=== PATIENT | female | born 1945 | race Caucasian/White ===

== ENCOUNTER 2025-03-08 11:11 | Outpatient (CLI) | payer MEDICARE, SELFPAY ==
--- NOTE | ~2025-03-08 | DEXA_ITS ---
Bone Density Report Name: EM CERVANTES Age: 79 Sex: Female Ethnicity: White Date of : 1945 Indication: osteopenia; height loss; Referring Provider: PK SEALS Study: Bone densitometry was performed. Exam Date: March 08, 2025 Accession number: [id number] Bone Density: Region BMD T-score Z-score Classification AP Spine(L1-L4) 0.997 -0.5 2.2 Normal Femoral Neck (Left) 0.589 -2.3 -0.1 Osteopenia Total Hip (Left) 0.799 -1.2 0.9 Osteopenia Femoral Neck (Right) 0.571 -2.5 -0.2 Osteoporosis Total Hip (Right) 0.761 -1.5 0.5 Osteopenia Total Hip Mean 0.780 -1.4 0.7 Osteopenia World Health Organization criteria for BMD impression classify patients as: Normal (T-score at or above -1.0), Osteopenia (T-score between -1.0 and -2.5), or Osteoporosis (T-score at or below -2.5). 10-year Fracture Risk: FRAX not reported because: Some T-score for Spine Total or Hip Total or Femoral Neck at or below -2.5 Previous Exams: -- Region Exam Age BMD T-score BMD Change BMD Change Date g/cm2 vs Baseline vs Previous -- Total Hip(Left) 03/08/2025 79 0.799 -1.2 8.8%* 8.8%* 08/05/2019 73 0.735 -1.7 Total Hip(Right) 03/08/2025 79 0.761 -1.5 5.5%* 5.5%* 08/05/2019 73 0.722 -1.8 -- *Denotes significance at 95% confidence level, LSC for Total Hip = 0.027 g/cm2 Clinical Information Provided by Patient: Has used the following medications: Prolia (i.e. denosumab) Patient maximum height was 62.5 Menopause Age: 60 Drinks caffeinated beverages Onset of menses at age 12 Number of children 2 Impression: The patient has osteoporosis, based on the Right Femoral Neck T-score. No significant bone loss was observed. Discussion: INCREASED RISK OF FRACTURE. BONE DENSITY IS UNDESIRABLY LOW AT ONE OR MORE SKELETAL SITES, CONSISTENT WITH POSTMENOPAUSAL OSTEOPOROSIS. This patient's lowest T-score meets the World Health Organization's (WHO) criteria for osteoporosis at one or more sites (T-score -2.5 or below). In untreated patients, the risk of osteoporotic fracture increases approximately two-fold for each 1.0 SD decrease in T-score. Low bone density is not the only risk factor for fracture; also consider factors such as patient's age, frailty or poor health, risk of falling, risk of injury, previous osteoporotic fracture, family history of osteoporosis, cigarette smoking, low body weight, etc. Not everyone with low bone mineral density has osteoporosis; osteomalacia and other metabolic bone disorders should also be considered. Patients who have osteoporosis should be evaluated for specific diseases and conditions (secondary causes) that may cause or contribute to bone loss. The [place] [employer] (AACE) and National Osteoporosis Foundation (NOF) recommend pharmacologic intervention for all postmenopausal women whose T-score is in this range. The patient should follow a healthful lifestyle (good nutrition with adequate calcium and vitamin D, and appropriate weight-bearing exercise). Follow-Up: Consider a repeat BMD and Vertebral Fracture Assessment (VFA) exam in 2 years or sooner if medically necessary, to reassess this patient's status. Reported by: ABIEL on 03/08/2025 11:31:00 AM. Reviewed, dictated and finalized at location A.
== END 2025-03-08 11:12 | disposition home or self-care (01) ==
LOC: MICIMG 11:13
PROVIDERS: PCP Family Medicine; Visit Provider Family Medicine
DX: M81.0 Age-related osteoporosis without current pathological fracture (principal); M85.89 Other specified disorders of bone density and structure, multiple sites
CPT/HCPCS: 77080